=== PATIENT | male | born 1955 | race Caucasian/White ===

== ENCOUNTER 2019-07-29 13:14 | Emergency (ER) | payer BC ==
--- OUTSIDE RECORDS SUMMARY | 2019-07-29 13:37 | XMS REPORT | Continuity of Care Document ---
:1955 External Reference #:[id number] Author Name Godwin Joseph DO, MPH Address [address] [place] [address], [address] [place] [address] Care Team Providers Name Role Phone Jordan Mehta M.D. - Family Care Team Information Professor Of Early Childhood Education Medicine Problems Description No Information Available Social History Type Date Description Comments Sex Unknown Cigarette Use Current Cigarette Smoker 1 Pack Daily ETOH Use Occasionally consumes alcohol Tobacco Use Start: Unknown Patient is a current smoker, smokes every day Smoking Status Reviewed: 05/29/19 Patient is a current smoker, smokes every day Allergies, Adverse Reactions, Alerts Description No Known Drug Allergies Medications Active Medications SIG Qnty Indications Ordering Provider Date Oxycontin take 1 tablet by 90tabs Godwin Joseph DO, 07/06/2016 15mg Tab ER mouth every 8 MPH 12H Abuse-Det hours as directed chronic pain fill under wc Opana si by mouth 90tabs Godwin Joseph DO, 06/07/2016 5mg Tablets every 8 hours as MPH directed chronic pain patient fill under wc Synthroid 1 po qd Unknown 150mcg Tablets Lipitor Qpm Unknown 80mg Tablets Immunizations Description No Information Available Vital Signs Date Vital Result Comment 06/28/2019 1:44pm BP Systolic 140 mmHg BP Diastolic 82 mmHg Heart Rate 88 /min Respiratory Rate 20 /min Height 71 inches 5'11" Weight 282.00 lb Pain Level 6 Pain at this time. Pain Level With Medicine 6 on average with meds Pain Level Without Medicine 9 without meds BMI (Body Mass Index) 39.3 kg/m2 05/29/2019 2:04pm BP Systolic 148 mmHg BP Diastolic 86 mmHg Heart Rate 80 /min Respiratory Rate 20 /min Height 71 inches 5'11" Weight 284.00 lb Pain Level 7 Pain at this time. Pain Level With Medicine 6 on average with meds Pain Level Without Medicine 9 without meds BMI (Body Mass Index) 39.6 kg/m2 Results Description No Information Available Procedures Description No Information Available Medical Devices Description No Information Available Encounters Type Date Location Provider Dx Diagnosis Office Visit 05/29/2019 Main Office as Of Godwin Joseph DO G89.21 Chronic pain due 2:00p 11/30/13 MPH to trauma M54.5 Low back pain Z79.891 remote computer terminal operator (current) use of opiate analgesic Z79.891 penitentiary (current) use of opiate analgesic Office Visit 04/29/2019 2:00p Main Office as Godwin Joseph G89.21 Chronic pain due Of 11/30/13 DO, MPH to trauma M54.5 Low back pain Z79.891 penitentiary (current) use of opiate analgesic Z79.891 remote computer terminal operator (current) use of opiate analgesic Office Visit 03/29/2019 2:15p Main Office as Godwin Joseph G89.21 Chronic pain due Of 11/30/13 DO, MPH to trauma M54.5 Low back pain Z79.891 penitentiary (current) use of opiate analgesic Z79.891 [facility]itentiary (current) use of opiate analgesic Office Visit 02/28/2019 2:15p Main Office as Godwin Joseph G89.21 Chronic pain due Of 11/30/13 DO, MPH to trauma M54.5 Low back pain Z79.891 remote computer terminal operator (current) use of opiate analgesic Z79.891 remote computer terminal operator (current) use of opiate analgesic Office Visit 01/28/2019 2:30p Main Office as Godwin Joseph G89.21 Chronic pain due Of 11/30/13 DO, MPH to trauma M54.5 Low back pain Z79.891 remote computer terminal operator (current) use of opiate analgesic Z79.891 remote computer terminal operator (current) use of opiate analgesic Assessments Date Code Description Provider 06/28/2019 G89.21 Chronic pain due to trauma Godwin Joseph DO, MPH 06/28/2019 M54.5 Low back pain Godwin Joseph DO MPH 06/28/2019 Z79.891 penitentiary (current) use of opiate analgesic Joseph, Godwin , DO, MPH 06/28/2019 Z79.891 remote computer terminal operator (current) use of opiate analgesic Joseph, Godwin , DO, MPH 05/29/2019 G89.21 Chronic pain due to trauma Joseph, Godwin, DO, MPH 05/29/2019 M54.5 Low back pain Joseph, Godwin, DO, MPH 05/29/2019 Z79.891 remote computer terminal operator (current) use of opiate analgesic Joseph, Godwin , DO, MPH 05/29/2019 Z79.891 penitentiary (current) use of opiate analgesic Joseph, Godwin , DO, MPH 04/29/2019 G89.21 Chronic pain due to trauma Joseph, Godwin, DO, MPH 04/29/2019 M54.5 Low back pain Joseph, Godwin, DO, MPH 04/29/2019 Z79.891 remote computer terminal operator (current) use of opiate analgesic Joseph, Godwin , DO, MPH 04/29/2019 Z79.891 penitentiary (current) use of opiate analgesic Joseph, Godwin , DO, MPH 03/29/2019 G89.21 Chronic pain due to trauma Joseph, Godwin, DO, MPH 03/29/2019 M54.5 Low back pain Joseph, Godwin, DO, MPH 03/29/2019 Z79.891 penitentiary (current) use of opiate analgesic Joseph, Godwin , DO, MPH 03/29/2019 Z79.891 remote computer terminal operator (current) use of opiate analgesic Joseph, Godwin , DO, MPH 02/28/2019 G89.21 Chronic pain due to trauma Joseph, Godwin, DO, MPH 02/28/2019 M54.5 Low back pain Joseph, Godwin, DO, MPH 02/28/2019 Z79.891 penitentiary (current) use of opiate analgesic Joseph, Godwin , DO, MPH 02/28/2019 Z79.891 penitentiary (current) use of opiate analgesic Joseph, Godwin , DO, MPH 01/28/2019 G89.21 Chronic pain due to trauma Joseph, Godwin, DO, MPH 01/28/2019 M54.5 Low back pain Joseph, Godwin, DO, MPH 01/28/2019 Z79.891 penitentiary (current) use of opiate analgesic Godwin Joseph DO MPH 01/28/2019 Z79.891 remote computer terminal operator (current) use of opiate analgesic Godwin Joseph DO MPH Plan of Treatment Future Appointment(s):07/26/2019 2:15 pm - Godwin Joseph DO MPH at Main Office as Of 11/30/1407 - Godwin Joseph DO MPHG89.21 Chronic pain due to traumaComments:Chronic. Symptoms and complaints discussed and reviewed today. No significant changes in physical findings. Continue current medical pain management.M54.5 Low back painComments:Chronic. Symptoms and complaints discussed and reviewed today.No changes in physical findings. Patient is stable and comfortable when current medical therapy is rendered.Z79.891 penitentiary ( current) use of opiate analgesicNew Labs:Urine Drug Screen, Ordered: Comments:Urine drug screen sample taken today to monitor opiate use and to monitor use of illicit substances.Will discuss results at next appointment.The following tests were ordered:6 AM, AMPH, CLARITA, ANGELICA, BUP, CARIS, COCM, COT, ETG , FENT, MCSHSG, OPI, OXY, PCP, TAPEN, XTSY, ZOLP. A urine drug test (UDT ) was ordered for this patient and collected on site today. Creatinine has been ordered as well for specimen validity, not for kidney function. Preliminary UDT results are not final and should not be used to determine patient care or plan of treatment. Initially a qualitative immunoassay screen will be done. Any inconsistent or positive findings will be further tested with a more comprehensive quantitative confirmation LCMS study. It is part of the treatment process of prescribing controlled substances and is considered standard of care.AllComments:Continue current medical pain management; injection therapy, osteopathic manipulation, PT / modalities, and consults as needed to manage chronic pain.Non - opioid pain management discussed and optionsdiscussed.Side effects discussed; anticipatory guidance given. Patient clearly understand and agree with all medical treatments and suggestions. All medicines prescribed are adequate and appropriate for this patient's complaint of pain, medical history, physical, and personal goals.Goals of Treatment are to provide adequate and appropriate multidisciplinary medical pain management to increase/ maintain patient's quality of life and functionality while maintaining satisfactory side effect profile andminimizing detention end-organ damage. Importance of regular nutrition throughout the day discussed.Activity as toleratedContinue with PCP Functional Status Description No Information Available Mental Status Description No Information Available Referrals Description No Information Available
--- OUTSIDE RECORDS SUMMARY | 2019-07-29 13:37 | XMS REPORT | Continuity of Care Document ---
:1955 External Reference #:[id number] Author Name Godwin Joseph DO, MPH Address [address] [place] [address], [address] [place] [address] Care Team Providers Name Role Phone Jordan Mehta M.D. - Family Care Team Information Animal Physiologist Medicine Problems Description No Information Available Social History Type Date Description Comments Sex Unknown Cigarette Use Current Cigarette Smoker 1 Pack Daily ETOH Use Occasionally consumes alcohol Tobacco Use Start: Unknown Patient is a current smoker, smokes every day Smoking Status Reviewed: 07/26/19 Patient is a current smoker, smokes every [...] Available Vital Signs Date Vital Result Comment 07/26/2019 2:16pm BP Systolic 136 mmHg BP Diastolic 86 mmHg Heart Rate 84 /min Respiratory Rate 20 /min Height 71 inches 5'11" Weight 283.00 lb Pain Level 5 Pain at this time. Pain Level With Medicine 4 on average with meds Pain Level Without Medicine 9 without meds BMI (Body Mass Index) 39.5 kg/m2 06/28/2019 1:44pm BP Systolic 140 mmHg BP Diastolic 82 mmHg Heart Rate 88 /min Respiratory Rate 20 /min Height 71 inches 5'11" Weight 282.00 lb Pain Level 6 Pain at this time. Pain Level With Medicine 6 on average with meds Pain Level Without Medicine 9 without meds BMI (Body Mass Index) 39.3 kg/m2 Results Description No Information Available Procedures Description No Information Available Medical Devices Description No Information Available Encounters Type Date Location Provider Dx Diagnosis Office Visit 06/28/2019 Main Office as Of Godwin Joseph DO G89.21 Chronic pain due 1:45p 11/30/13 MPH to trauma M54.5 Low back pain Z79.891 USP (current) use of opiate analgesic Z79.891 USP (current) use of opiate analgesic Office Visit 05/29/2019 2:00p Main Office as Godwin Joseph G89.21 Chronic pain due Of 11/30/13 DO, MPH to trauma M54.5 Low back pain Z79.891 USP (current) use of opiate analgesic Z79.891 USP (current) use of opiate analgesic Office Visit 04/29/2019 2:00p Main Office as Godwin Joseph G89.21 Chronic pain due Of 11/30/13 DO, MPH to trauma M54.5 Low back pain Z79.891 USP (current) use of opiate analgesic Z79.891 exterminator helper termite (current) use of opiate analgesic Office Visit 03/29/2019 2:15p Main Office as Godwin Joseph G89.21 Chronic pain due Of 11/30/13 DO, MPH to trauma M54.5 Low back pain Z79.891 exterminator helper termite (current) use of opiate analgesic Z79.891 USP (current) use of opiate analgesic Office Visit 02/28/2019 2:15p Main Office as Godwin Joseph G89.21 Chronic pain due Of 11/30/13 DO, MPH to trauma M54.5 Low back pain Z79.891 exterminator helper termite (current) use of opiate analgesic Z79.891 USP (current) use of opiate analgesic Office Visit 01/28/2019 2:30p Main Office as Godwin Joseph G89.21 Chronic pain due Of 11/30/13 DO, MPH to trauma M54.5 Low back pain Z79.891 USP (current) use of opiate analgesic Z79.891 USP (current) use of opiate analgesic Assessments Date Code Description Provider 07/26/2019 G89.21 Chronic pain due to trauma Joseph, Godwin, DO, MPH 07/26/2019 M54.5 Low back pain Joseph, Godwin, DO, MPH 07/26/2019 Z79.891 USP (current) use of opiate analgesic Joseph, Godwin , DO, MPH 07/26/2019 Z79.891 exterminator helper termite (current) use of opiate analgesic Joseph, Godwin , DO, MPH 06/28/2019 G89.21 Chronic pain due to trauma Joseph, Godwin, DO, MPH 06/28/2019 M54.5 Low back pain Joseph, Godwin, DO, MPH 06/28/2019 Z79.891 USP (current) use of opiate analgesic Joseph, Godwin , DO, MPH 06/28/2019 Z79.891 USP (current) use of opiate analgesic Joseph, Godwin , DO, MPH 05/29/2019 G89.21 Chronic pain due to trauma Joseph, Godwin, DO, MPH 05/29/2019 M54.5 Low back pain Joseph, Godwin, DO, MPH 05/29/2019 Z79.891 USP (current) use of opiate analgesic Joseph, Godwin , DO, MPH 05/29/2019 Z79.891 USP (current) use of opiate analgesic Joseph, Godwin , DO, MPH 04/29/2019 G89.21 Chronic pain due to trauma Joseph, Godwin, DO, MPH 04/29/2019 M54.5 Low back pain Joseph, Godwin, DO, MPH 04/29/2019 Z79.891 USP (current) use of opiate analgesic Joseph, Godwin , DO, MPH 04/29/2019 Z79.891 exterminator helper termite (current) use of opiate analgesic Joseph, Godwin , DO, MPH 03/29/2019 G89.21 Chronic pain due to trauma Joseph, Godwin, DO, MPH 03/29/2019 M54.5 Low back pain Joseph, Godwin, DO, MPH 03/29/2019 Z79.891 USP (current) use of opiate analgesic Joseph, Godwin , DO, MPH 03/29/2019 Z79.891 exterminator helper termite (current) use of opiate analgesic Godwin Joseph DO MPH 02/28/2019 G89.21 Chronic pain due to trauma Godwin Joseph DO MPH 02/28/2019 M54.5 Low back pain Godwin Joseph DO MPH 02/28/2019 Z79.891 USP (current) use of opiate analgesic Godwin Joseph DO MPH 02/28/2019 Z79.891 USP (current) use of opiate analgesic Godwin Joseph DO MPH 01/28/2019 G89.21 Chronic pain due to trauma Godwin Joseph DO MPH 01/28/2019 M54.5 Low back pain Godwin Joseph DO MPH 01/28/2019 Z79.891 exterminator helper termite (current) use of opiate analgesic Godwin Joseph DO MPH 01/28/2019 Z79.891 USP (current) use of opiate analgesic Godwin Joseph DO MPH Plan of Treatment Future Appointment(s):08/28/2019 2:45 pm - Godwin Joseph DO MPH at Main Office as Of 11/30/1408 - Godwin Joseph DO MPHG89.21 Chronic pain due to traumaComments:Chronic. Symptoms and complaints discussed and reviewed today. No significant changes in physical findings. Continue current medical pain management.M54.5 Low back painComments:Chronic. Symptoms and complaints discussed and reviewed today.No changes in physical findings. Patient is stable and comfortable when current medical therapy is rendered.Z79.891 USP ( current) use of opiate analgesicNew Labs:Urine Drug Screen, Ordered: Comments:Urine drug screen sample taken. Rapid Point of Care Cup was reviewed in office with patient. Will send out UDT Rapid to Quantitative lab for confirmation testing. Urine Drug Testing (UDT) was done today to monitor opiate use and to monitor possible use of illicit substances. I will discuss the results at the next appointment from the Quantitative lab.The following tests were ordered:6 AM, AMPH, CLARITA, ANGELICA, BUP, CARIS, COCM, COT, ETG, FENT, MCSHSG, OPI, OXY, PCP, TAPEN, XTSY, ZOLP. A urine drug test (UDT) using a rapid screen cup was ordered for this patient and collected on site today. Creatinine has been ordered as well for specimen validity, not for kidney function. Urine Drug Testing is a mandatory component of chronic opioid management, as part of the baseline assessment and ongoing re-assessment of opioid therapy. Per [facility] [employer], [place] Non- Acute Pain Medical Treatment Guidelines, section F.3.d.i. This test is to be used in conjunction with other clinical information when decisions are to be made to continue, adjust or discontinue treatment. This information includes clinical observation, results of addiction screening, pill counts, and prescription drug monitoring reports. Preliminary UDT screen results are not final and should not be usedto determine patient care or plan of treatment. This sample will be sent out for a more comprehensive quantitative confirmation LCMS study. It is part of the treatment process of prescribing controlled substances and is considered standard of care at this clinic.AllComments: Continue current medical pain management; injection therapy, osteopathic [...] while maintaining satisfactory side effect profile andminimizing buttermaker helper end-organ damage. Importance of regular nutrition throughout the day discussed.Activity as toleratedContinue with PCP Functional Status Description No Information Available Mental Status Description No Information Available Referrals Description No Information Available
--- NOTE | 2019-07-29 14:15 | ED ---
Lower Extremity - HPI Summary HPI Summary: This patient is a 64 year old male presenting to [facility] from his primary doctors office for evaluation of possible DVT of the left leg. He states that 4- 5 days ago he started to have pain and swelling to the leg. He initially thought he had a pulled muscle before he noticed the swelling. He reports no injury or long travel. He reports 7/10 severity for his pain. He has a Hx of neuropathy and HLD and states he has no Hx of DVT. - History of Current Complaint Chief Complaint: EDExtremityLower Stated Complaint: LEFT LEG SWELLEN/PAIN PER PATIENT Time Seen by Provider: 07/29/19 14:04 Hx Obtained From: Patient Onset/Duration: Days Pain Intensity: 7 Pain Scale Used: 0-10 Numeric Associated Signs And Symptoms: Positive: Swelling - Allergies/Home Medications Allergies/Adverse Reactions: Allergies Allergy/AdvReac Type Severity Reaction Status Date / Time No Known Allergies Allergy Verified 10/27/15 13:33 PMH/Surg Hx/FS Hx/Imm Hx Endocrine/Hematology History: Reports: Hx Thyroid Disease - enlarged Denies: Hx Diabetes Cardiovascular History: Denies: Hx Hypertension Respiratory History: Denies: Hx Asthma, Hx Chronic Obstructive Pulmonary Disease (COPD) GI History: Denies: Hx Ulcer - Surgical History Surgery Procedure, Year, and Place: colonoscopy Infectious Disease History: No Infectious Disease History: Denies: Hx Clostridium Difficile, Hx Hepatitis, Hx Human Immunodeficiency Virus (HIV), Hx of Known/Suspected MRSA, Hx Shingles, Hx Tuberculosis, Hx Known/ Suspected VRE, Hx Known/Suspected VRSA, History Other Infectious Disease, Traveled Outside the in Last 30 Days - Family History Known Family History: Positive: None - Social History Alcohol Use: Daily Substance Use Type: Reports: Prescribed Smoking Status (MU): Heavy Every Day Tobacco Smoker Type: Cigarettes Have You Smoked in the Last Year: Yes Review of Systems Negative: Fever Positive: Edema, Other - Left leg pain All Other Systems Reviewed And Are Negative: Yes Physical Exam - Summary Physical Exam Summary: VITAL SIGNS: Reviewed. GENERAL: Patient is a well-developed and nourished MALE who is lying comfortable in the stretcher. Patient is not in any acute respiratory distress. HEAD AND FACE: No signs of trauma. No ecchymosis, hematomas or skull depressions. No sinus tenderness. EYES: PERRLA, EOMI x 2, No injected conjunctiva, no nystagmus. EARS: Hearing grossly intact. Ear canals and tympanic membranes are within normal limits. MOUTH: Oropharynx within normal limits. NECK: Supple, trachea is midline, no adenopathy, no JVD, no carotid bruit, no c- spine tenderness, neck with full ROM. CHEST: Symmetric, no tenderness at palpation. LUNGS: Clear to auscultation bilaterally. No wheezing or crackles. CVS: Regular rate and rhythm, S1 and S2 present, no murmurs or gallops appreciated. ABDOMEN: Soft, non-tender. No signs of distention. No rebound, no guarding, and no masses palpated. Bowel sounds are normal. EXTREMITIES: FROM in all major joints, no edema, no cyanosis or clubbing. Tenderness in the left calf. Onychomycosis in both feet. Neuropathy in both feet. SKIN: Dry and warm. IF PSYCHIATRIC/MENTAL HEALTH ADD THE FOLLOWING TO THE GENERAL NML EXAM: PSYCH: Depressed, quiet, and denies any suicidal thoughts or plan. No homicidal thoughts or plan. No signs of psychosis or pressure speech. No tangential speech. Triage Information Reviewed: Yes Vital Signs On Initial Exam: Initial Vitals Temp Pulse Resp BP Pulse Ox 98.2 F 69 18 131/74 97 07/29/19 13:20 07/29/19 13:20 07/29/19 13:20 07/29/19 13:20 07/29/19 13:20 Vital Signs Reviewed: Yes Diagnostics - Vital Signs Vital Signs Temp Pulse Resp BP Pulse Ox 07/29/19 13:20 98.2 F 69 18 131/74 97 - Laboratory Lab Statement: Any lab studies that have been ordered have been reviewed, and results considered in the medical decision making process. - Ultrasound No standard instances Ultrasound Interpretation Completed By: Radiologist Summary of Ultrasound Findings: LLE: Deep Venous Thrombbosis Extending from the proximal femoral through the popliteal vein. ED Provider has reviewed this report. Lower Extremity Course/Dx - Course Assessment/Plan: This patient is a 64 year old male presenting to [facility] from his primary doctors office for evaluation of possible DVT of the left leg. He states that 4-5 days ago he started to have pain and swelling to the leg. He initially thought he had a pulled muscle before he noticed the swelling. He reports no injury or long travel. He reports 7/10 severity for his pain. He has a Hx of neuropathy and HLD and states he has no Hx of DVT. US LLE impression: DEEP VENOUS THROMBOSIS EXTENDING FROM THE PROXIMAL FEMORAL THROUGH THE. POPLITEAL VEIN. I discussed all the findings and test results with the patient. Patient was instructed to return to the emergency room immediately if any of the symptoms return worsens. Plan of care was discussed with the patient and understands and agrees. All questions were answered at patient satisfaction. There were no further complaints or concerns. Lung exam before discharge: CTA B/L. Good air exchange. No wheezing or crackles heard. CVS: S1 and S2 present. No murmurs appreciated. Patient is alert and oriented x 3. Patient is hemodynamically stable. Patient will be discharged home with follow up PCP in the next 2-3 days - Diagnoses Provider Diagnoses: DVT (deep venous thrombosis) Discharge ED - Sign-Out/Discharge Documenting (check all that apply): Patient Departure - Discharge Patient Received Moderate/Deep Sedation with Procedure: No - Discharge Plan Condition: Stable Disposition: HOME Prescriptions: Apixaban* [Eliquis*] 10 mg PO BID #14 tab Apixaban* [Eliquis*] 5 mg PO BID #60 tab Patient Education Materials: Deep Vein Thrombosis (ED) Referrals: Jordan Mehta MD [Primary Care Provider] - 3 Days Additional Instructions: Return to ED with new or worsening symptoms. - Billing Disposition and Condition Condition: STABLE Disposition: Home - Attestation Statements Document Initiated by Gregory: Yes Documenting Scribe: Jordan Orellana Provider For Whom Gregory is Documenting (Include Credential): Faustino Gallagher MD Scribe Attestation: Jordan Minaya, scribed for Faustino Gallagher MD on 07/29/19 at 2155. Scribe Documentation Reviewed: Yes Provider Attestation: The documentation as recorded by the Jordan duran accurately reflects the service I personally performed and the decisions made by , Faustino Gallagher MD Status of Scribe Document: Viewed
[2019-07-29] MEDS ORDERED: Apixaban* 5 MG TAB PO ONE (15:13)
[2019-07-29 16:26] VITALS: BP 117/62
== END 2019-07-29 16:25 | disposition home or self-care (01) ==
LOC: ED 13:14
DX: I82.412 Acute embolism and thrombosis of left femoral vein (principal); I82.432 Acute embolism and thrombosis of left popliteal vein; G90.09 Other idiopathic peripheral autonomic neuropathy; F17.210 Nicotine dependence, cigarettes, uncomplicated
CPT/HCPCS: 99282